=== PATIENT | female | born 1965 | race Asian ===

== ENCOUNTER 2024-06-16 13:45 | Emergency (ER) | payer SELFPAY ==
[~2024-06-16] VITALS: Ht 162.6 cm; Wt 73.0 kg
[2024-06-16 14:16] VITALS: BP 164/78; PULSE 70; RESP 18; TEMP 97.9; O2SAT 98
[2024-06-16] MEDS: DOXYCYCLINE HYCLATE 100 MG TABLET PO ONE (14:46)
[2024-06-16] MEDS: MUPIROCIN CALCIUM 2% 22 GM OINTMENT TP ONE (14:46)
[2024-06-16] MEDS ORDERED: DOXY-354 PO (14:51)
[2024-06-16] MEDS ORDERED: MUPI15CR12 TP (14:51)
== END 2024-06-16 15:05 | disposition home or self-care (01) ==
LOC: EMS 13:45
DX: L01.00 Impetigo, unspecified (principal); E78.00 Pure hypercholesterolemia, unspecified; Z88.0 Allergy status to penicillin
CPT/HCPCS: 99283